=== PATIENT | male | born 1995 | race Hispanic/Latino ===

== ENCOUNTER 2018-05-12 10:26 | Emergency (ER) | payer BC ==
[2018-05-12] MEDS ORDERED: Sodium Chloride 0.9% 1,000 ML IV ONE (10:41)
--- NOTE | 2018-05-12 10:50 | C.PDOC ---
History Of Present Illness 22 year old male presents to ED for evaluation of rectal pain for the last few days. Patient states they visited the Urgent Care and were sent to the ED. Denies fever, chills, vomiting, nausea. Time Seen by Provider: 05/12/18 10:38 Chief Complaint (Nursing): Abnormal Skin Integrity History Per: Patient History/Exam Limitations: no limitations Onset/Duration Of Symptoms: Days Current Symptoms Are (Timing): Still Present Past Medical History Reviewed: Historical Data, Nursing Documentation, Vital Signs Vital Signs: Last Vital Signs Temp 100.7 F H 05/12/18 14:34 Pulse 97 H 05/12/18 14:34 Resp 18 05/12/18 14:34 BP 131/72 05/12/18 14:34 Pulse Ox 99 05/12/18 17:26 Surgical History: No Surg Hx Family History: States: Unknown Family Hx - Social History Hx Alcohol Use: Yes Hx Substance Use: No - Immunization History Hx Tetanus Toxoid Vaccination: No Hx Influenza Vaccination: No Hx Pneumococcal Vaccination: No Review Of Systems Except As Marked, All Systems Reviewed And Found Negative. Constitutional: Negative for: Fever, Chills Gastrointestinal: Positive for: Rectal Pain. Negative for: Nausea, Vomiting Physical Exam - Physical Exam Appears: Non-toxic Skin: Normal Color, Warm, Dry Head: Atraumatic, Normacephalic Oral Mucosa: Moist Chest: Symmetrical Cardiovascular: Rhythm Regular Respiratory: Normal Breath Sounds, No Rales, No Rhonchi, No Stridor Rectal: Other (tenderness to the left lateral anus, no swelling ) Extremity: Bilateral: Normal Color And Temperature, Normal ROM Pulses: Right Radial: Normal, Left Femoral: Normal Neurological/Psych: Oriented x3, Normal Speech Gait: Steady ED Course And Treatment - Laboratory Results Result Diagrams: 05/12/18 11:09 05/12/18 11:09 O2 Sat by Pulse Oximetry: 99 (RA) Pulse Ox Interpretation: Normal Medical Decision Making Medical Decision Making: Impression: tenderness to the left lateral anus. Plan: -CT pelvis with IV contrast -Blood work sent -Sodium chloride pt seen by surgical team. advised to f/u wit dr gonzalez office [place] now. pt sent to office of dr gonzalez. Disposition - Disposition Referrals: Cooper Gonzalez MD [Staff Provider] - Disposition: HOME/ ROUTINE Disposition Time: 17:25 Condition: STABLE Additional Instructions: follow up with dr gonzalez. he is expecting to see you right now. return to er with worsneing symptoms or concerns. Instructions: Anal Abscess and Fistula Forms: [facility] ([place]) - Clinical Impression Clinical Impression: Perirectal abscess - Scribe Statement The provider has reviewed the documentation as recorded by the Scribe (Tonya Rahman) Provider Attestation: All medical record entries made by the Scribe were at my direction and personally dictated by me. I have reviewed the chart and agree that the record accurately reflects my personal performance of the history, physical exam, medical decision making, and the department course for this patient. I have also personally directed, reviewed, and agree with the discharge instructions and disposition.
[2018-05-12 11:13] LABS: BASO % 0.8 % (0.0-2.0); EOS % 0.4 % (0.0-4.0); HEMOGLOBIN 15.2 g/dL (12.0-18.0); LYMPH # 0.8 K/uL (1.0-4.3); MEAN CELL VOLUME 92.4 fL (80.0-94.0); MEAN CORPUSCULAR HEMOGLOBIN 31.8 pg (27.0-31.0); MEAN CORPUSCULAR HGB CONC 34.4 g/dL (33.0-37.0); MEAN PLATELET VOLUME 10.1 fL (7.2-11.7); MONO # 0.5 K/uL (0.0-0.8); MONO % 8.5 % (0.0-10.0); NEUT # 4.8 K/uL (1.8-7.0); NEUT % 77.3 % (50.0-75.0); RBC 4.78 Mil/uL (4.40-5.90); RED CELL DISTRIBUTION WIDTH 13.2 % (11.5-14.5); WHITE BLOOD COUNT 6.2 K/uL (4.8-10.8)
[2018-05-12 11:22] LABS: INR 1.1; PROTHROMBIN TIME 11.9 SECONDS (9.7-12.2)
[2018-05-12 11:34] LABS: ALB/GLOB RATIO 1.8 (1.0-2.1); ALBUMIN 4.6 g/dL (3.5-5.0); ALT/SGPT 47 U/L (21-72); AST/SGOT 55 U/L (17-59); BLOOD UREA NITROGEN 20 mg/dL (9-20); CALCIUM 9.5 mg/dl (8.6-10.4); GFR NON-AFRICAN AMERICAN > 60
[2018-05-12] MEDS ORDERED: Iodixanol 320 MG/ML 100 ML BOTTLE IV ONE (13:15)
--- NOTE | 2018-05-12 13:54 | CT ---
Date of service: 05/12/2018 PROCEDURE: CT Pelvis with contrast HISTORY: rectal pain r/o abscess COMPARISON: None available. TECHNIQUE: Contiguous axial images of the pelvis with contrast. Coronal and sagittal reformats generated. Contrast dose: Radiation dose: Total exam DLP = mGy-cm. This CT exam was performed using one or more of the following dose reduction techniques: Automated exposure control, adjustment of the mA and/or kV according to patient size, and/or use of iterative reconstruction technique. FINDINGS: BLADDER: Unremarkable. No mass. REPRODUCTIVE ORGANS: Unremarkable. VISUALIZED BOWEL: 12 millimeter left perianal abscess. No significant infiltration in the adjacent fat. . PERITONEUM: Unremarkable, as visualized. No free fluid. No free air. LYMPH NODES: Unremarkable. No enlarged lymph nodes. VASCULATURE: Unremarkable. BONES: No fracture or focal lesion. OTHER FINDINGS: None. IMPRESSION: 12 millimeter left perianal abscess. No significant infiltration in the adjacent fat. .
[2018-05-12 14:34] VITALS: BP 131/72; PULSE 97; RESP 18; TEMP 100.7
--- NOTE | 2018-05-12 14:45 | CP.PCM.CON ---
History of Present Illness - History of Present Illness History of Present Illness: General surgery consult note for Dr. Juventino Vargas, PGY-2 Pt S & E at bedside at 1420 22F w/no sig PMH consulted for L perianal abscess/pain x 3 days. Pt reports sudden onset of left perianal pain, moderate to severe, constant, non radiating , never had before. Denies N & V, F & C, changes in bowel or bladder habits, changes in eating habits, other complaints. In ED - CT pelvis with 12 mm L perianal abscess. Afebrile, no leukocytosis. PMH: Depression PSH: Denies All: NKDA SH: Denies ETOH, tobacco, illicit drug use Review of Systems - Review of Systems All systems: reviewed and no additional remarkable complaints except - Constitutional Constitutional: absent: Chills, Fever - Gastrointestinal Gastrointestinal: absent: Abdominal Pain, Change in Bowel Habits, Constipation, Diarrhea, Hematochezia, Melena, Nausea, Vomiting - Genitourinary Genitourinary: absent: Dysuria, Pyuria - Integumentary Integumentary: Skin Pain Past Patient History - Infectious Disease Hx of Infectious Diseases: None - Past Social History Smoking Status: Never Smoked - PSYCHIATRIC Hx Substance Use: No - SURGICAL HISTORY Hx Surgeries: No - ANESTHESIA Hx Anesthesia: No Meds Allergies/Adverse Reactions: Allergies Allergy/AdvReac Type Severity Reaction Status Date / Time No Known Allergies Allergy Verified 05/12/18 10:33 Physical Exam - Constitutional Appears: Non-toxic, No Acute Distress - Head Exam Head Exam: ATRAUMATIC, NORMAL INSPECTION, NORMOCEPHALIC - Eye Exam Eye Exam: EOMI, Normal appearance - ENT Exam ENT Exam: Mucous Membranes Moist, Normal Exam - Neck Exam Neck exam: Positive for: Full Rom, Normal Inspection - Respiratory Exam Respiratory Exam: Clear to Auscultation Bilateral, NORMAL BREATHING PATTERN. absent: Prolonged Expiratory Phase, Rales, Rhonchi, Wheezes, Respiratory Distress - Cardiovascular Exam Cardiovascular Exam: REGULAR RHYTHM, +S1, +S2 - GI/Abdominal Exam GI & Abdominal Exam: Normal Bowel Sounds, Soft. absent: Tenderness - Rectal Exam Rectal Exam: absent: Black Stool, Bloody Stool, Hemorrhoids, Fecal Impaction Additional comments: Left perineal area with erythema, induration, tenderness to palpation EDIN done, no area of fluctuance or induration noted - Extremities Exam Extremities exam: Positive for: normal inspection - Back Exam Back exam: NORMAL INSPECTION - Neurological Exam Neurological exam: Alert, CN II-XII Intact, Oriented x3 - Psychiatric Exam Psychiatric exam: Normal Affect, Normal Mood - Skin Skin Exam: Dry, Erythema (left perineal area), Intact, Warm Results - Vital Signs Recent Vital Signs: Last Vital Signs Temp 100.7 F H 05/12/18 14:34 Pulse 97 H 05/12/18 14:34 Resp 18 05/12/18 14:34 BP 131/72 05/12/18 14:34 Pulse Ox 97 05/12/18 14:34 - Labs Result Diagrams: 05/12/18 11:09 05/12/18 11:09 Labs: Laboratory Results - last 24 hr 05/12/18 05/12/18 05/12/18 11:09 11:09 11:09 WBC 6.2 RBC 4.78 Hgb 15.2 Hct 44.1 MCV 92.4 MCH 31.8 H MCHC 34.4 RDW 13.2 Plt Count 139 MPV 10.1 Neut % (Auto) 77.3 H Lymph % (Auto) 13.0 L Ray % (Auto) 8.5 Eos % (Auto) 0.4 Baso % (Auto) 0.8 Neut # (Auto) 4.8 Lymph # (Auto) 0.8 L Ray # (Auto) 0.5 Eos # (Auto) 0.0 Baso # (Auto) 0.0 PT 11.9 INR 1.1 APTT 34 Sodium 141 Potassium 4.7 Chloride 103 Carbon Dioxide 31 H Anion Gap 12 BUN 20 Creatinine 0.9 Est GFR ( Amer) > 60 Est GFR (Non-Af Amer) > 60 Random Glucose 91 Calcium 9.5 Total Bilirubin 0.6 AST 55 ALT 47 Alkaline Phosphatase 82 Total Protein 7.1 Albumin 4.6 Globulin 2.5 Albumin/Globulin Ratio 1.8 Assessment & Plan - Assessment and Plan (Free Text) Assessment: 22M w/L perianal abscess Plan: Recommend outpatient evaluation at Dr. Quintanilla's office as per Dr. Dwight Vargas, PGY-2 - Date & Time Date: 05/12/18 Time: 14:42
[2018-05-12 17:26] VITALS: O2SAT 99
== END 2018-05-12 14:44 | disposition home or self-care (01) ==
LOC: C.ER 10:26
DX: K61.0 Anal abscess (principal)
CPT/HCPCS: 72193; 80053; 85025; 85610; 85730; 96360; 99284; J7030; Q9967